=== PATIENT | female | born 1995 ===

== ENCOUNTER 2018-08-23 16:19 | Emergency (ER) | payer OTHER ==
[2018-08-23 16:24] VITALS: RESP 16; TEMP 99.3; BMI 20.5
[2018-08-23] MEDS ORDERED: Sodium Chloride 0.9% 1,000 ML IV STA (17:13)
--- NOTE | 2018-08-23 17:22 | ED PDOC ---
HPI: Seizure Time Seen by Provider: 08/23/18 16:35 Chief Complaint (Nursing): Seizure Chief Complaint (Provider): Seizure History Per: Patient, Hospital Supervisor ([phone] ) History/Exam Limitations: no limitations Recent Seizure Activity Began: Hours Ago: (4) Number Of Seizures: One Associated Symptoms: denies: Bit Tongue, Incontinence Of Urine, Incontinence Of Stool, Injury As A Result Of Seizure Activity Additional Complaint(s): 23 year old female with a past medical history of epilepsy who is presenting to the ED for evaluation of seizure onset around 12 pm today. Patient states that she was at work when she had her seizure and reports that prior to this one she has not has a seizure since May. She reports that after the seizure she felt week, had a headache, and an episode of vomiting. Patient states that she has been living in the [facility] for 2 years and gets her workup done every time she goes to the [facility]. She admits that the last time she went to the [facility] was 1 year ago when she had her last full workup. Patient states that she was given Lamictal but ran out two weeks ago. She admits that she saved one pill and took it today. Patient offers no other medical complaints at this time. PMD: none provided Past Medical History Reviewed: Historical Data, Nursing Documentation, Vital Signs Vital Signs: Last Vital Signs Temp 99.3 F 08/23/18 16:23 Pulse 98 H 08/23/18 16:23 Resp 16 08/23/18 16:23 BP 126/70 08/23/18 16:23 Pulse Ox 99 08/23/18 16:23 - Medical History Other PMH: epilepsy - Surgical History Surgical History: No Surg Hx - Family History Family History: States: Unknown Family Hx - Social History Current smoker - smoking cessation education provided: No Alcohol: None Drugs: Denies - Home Medications Home Medications: Ambulatory Orders Medication Instructions Recorded Lamotrigine 25 mg PO DAILY #20 tablet 08/23/18 - Allergies Allergies/Adverse Reactions: Allergies Allergy/AdvReac Type Severity Reaction Status Date / Time No Known Allergies Allergy Verified 08/23/18 16:23 Review of Systems ROS Statement: Except As Marked, All Systems Reviewed And Found Negative Constitutional: Positive for: Weakness Gastrointestinal: Positive for: Vomiting Neurological: Positive for: Seizures, Headache Physical Exam - Reviewed Nursing Documentation Reviewed: Yes Vital Signs Reviewed: Yes - Physical Exam Appears: Positive for: Well, Non-toxic, No Acute Distress Head Exam: Positive for: ATRAUMATIC, NORMAL INSPECTION, NORMOCEPHALIC Skin: Positive for: Normal Color, Warm, DRY Eye Exam: Positive for: EOMI, Normal appearance, PERRL ENT: Positive for: Other (No tongue laceration) Neck: Positive for: Normal, Painless ROM Cardiovascular/Chest: Positive for: Regular Rate, Rhythm. Negative for: Murmur Respiratory: Positive for: Normal Breath Sounds. Negative for: Respiratory Distress Gastrointestinal/Abdominal: Positive for: Normal Exam, Soft. Negative for: Tenderness Extremity: Positive for: Normal ROM. Negative for: Deformity, Swelling Neurological/Psych: Positive for: Awake, Alert, Normal Tone, Oriented. Negative for: Motor/Sensory Deficits - Laboratory Results Result Diagrams: 08/23/18 17:20 08/23/18 17:20 - ECG O2 Sat by Pulse Oximetry: 99 (RA) Pulse Ox Interpretation: Normal Medical Decision Making Medical Decision Making: Time: 17:12 Plan: --CT Head --CMP --ED Urine Dipstick --ED Urine --CBC --IV Fluids --Urinalysis Accession No. : [id number] Patient Name / ID : MERI HINKLE M / [id number] Exam Date : 08/23/2018 17:55:51 ( Approved ) Study Comment : Sex / Age : F / 23Y Creator : Carroll Heredia MD Dictator : Carroll Heredia MD Yacht Master : Efficiency Clerk : Carroll Heredia MD Approver2 : Report Date : 08/23/2018 18:17:38 My Comment : Date of service: 08/23/2018 PROCEDURE: CT HEAD WITHOUT CONTRAST. HISTORY: Seizure, h/o epilepsy, BLISS COMPARISON: None. TECHNIQUE: Axial computed tomography images were obtained through the head/brain without intravenous contrast. Supplemental Coronal and Sagittal projections created and reviewed. Radiation dose: Total exam DLP = 808.75 mGy-cm. This CT exam was performed using one or more of the following dose reduction techniques: Automated exposure control, adjustment of the mA and/or kV according to patient size, and/or use of iterative reconstruction technique. FINDINGS: HEMORRHAGE: No intracranial hemorrhage. BRAIN: No mass effect or edema. No atrophy or chronic microvascular ischemic changes. VENTRICLES: Unremarkable. No hydrocephalus. CALVARIUM: Unremarkable. PARANASAL SINUSES: Unremarkable as visualized. No significant inflammatory changes. MASTOID AIR CELLS: Unremarkable as visualized. No inflammatory changes. OTHER FINDINGS: None. IMPRESSION: No acute intracranial abnormalities. No significant findings to account for the clinical presentation. Scribe Attestation: Documented by Paige Sibley, acting as a scribe for Mariaa Bunch MD. Provider Scribe Attestation: All medical record entries made by the Scribe were at my direction and personally dictated by me. I have reviewed the chart and agree that the record accurately reflects my personal performance of the history, physical exam, medical decision making, and the department course for this patient. I have also personally directed, reviewed, and agree with the discharge instructions and disposition. Disposition - Clinical Impression Clinical Impression: Seizure disorder - Disposition Referrals: [facility] [place] [Outside] [facility] [Outside] Breezy Young MD [Medical Doctor] - Disposition: Routine/Home Disposition Time: 18:23 Condition: STABLE Additional Instructions: FOLLOW-UP WITH NEUROLOGIST WITHIN 2 DAYS FOR REEVALUATION. Prescriptions: Lamotrigine 25 mg PO DAILY #20 tablet Instructions: Epilepsy in Adults Forms: [facility] ([place]), [facility] ED School/Work Excuse Print Language: LATVIAN Addendum Addendum: 08/24/18 15:53 Medical Emergency Report filled out and faxed to the [employer].
[2018-08-23 17:41] LABS: BASO % 0.3 % (0.0-2.0); EOS % 0.1 % (0.0-4.0); HEMOGLOBIN 15.2 g/dL (12.0-16.0); LYMPH # 0.9 K/uL (1.0-4.3); LYMPH % 7.3 % (20.0-40.0); MEAN CELL VOLUME 87.9 fl (81.0-99.0); MEAN CORPUSCULAR HEMOGLOBIN 28.8 pg (27.0-31.0); MEAN CORPUSCULAR HGB CONC 32.8 g/dL (33.0-37.0); MEAN PLATELET VOLUME 11.4 fl (7.2-11.7); MONO # 0.4 K/uL (0.0-0.8); MONO % 2.9 % (0.0-10.0); NEUT # 11.2 K/uL (1.8-7.0); NEUT % 89.4 % (50.0-75.0); PLATELET COUNT 318 K/uL (130-400); RBC 5.26 Mil/uL (3.80-5.20); RED CELL DISTRIBUTION WIDTH 13.4 % (11.5-14.5); WHITE BLOOD COUNT 12.5 K/uL (4.8-10.8)
[2018-08-23 17:51] LABS: BLOOD UREA NITROGEN 14 mg/dl (7-17); GFR NON-AFRICAN AMERICAN > 60
[2018-08-23 17:52] LABS: ALB/GLOB RATIO 1.3 (1.0-2.1); ALBUMIN 5.5 g/dL (3.5-5.0); ALT/SGPT 23 U/L (9-52); AST/SGOT 55 U/L (14-36)
[2018-08-23 17:53] LABS: SQUAMOUS EPITHIAL 2 /hpf (0-5); URINE BILIRUBIN NEGATIVE (NEGATIVE); URINE BLOOD NEGATIVE (NEGATIVE); URINE CLARITY SLIGHTY-CLOUDY (Clear); URINE COLOR YELLOW (YELLOW); URINE GLUCOSE (UA) NEG (NEGATIVE); URINE LEUKOCYTE ESTERASE NEG Leu/uL (Negative); URINE PROTEIN NEGATIVE (NEGATIVE); URINE UROBILINOGEN 0.2-1.0 mg/dL (0.2-1.0)
--- NOTE | 2018-08-23 18:21 | CT ---
Date of service: 08/23/2018 PROCEDURE: CT HEAD WITHOUT CONTRAST. HISTORY: Seizure, h/o epilepsy, BLISS COMPARISON: None. TECHNIQUE: Axial computed tomography images were obtained through the head/brain without intravenous contrast. Supplemental Coronal and Sagittal projections created and reviewed. Radiation dose: Total exam DLP = 808.75 mGy-cm. This CT exam was performed using one or more of the following dose reduction techniques: Automated exposure control, adjustment of the mA and/or kV according to patient size, and/or use of iterative reconstruction technique. FINDINGS: HEMORRHAGE: No intracranial hemorrhage. BRAIN: No mass effect or edema. No atrophy or chronic microvascular ischemic changes. VENTRICLES: Unremarkable. No hydrocephalus. CALVARIUM: Unremarkable. PARANASAL SINUSES: Unremarkable as visualized. No significant inflammatory changes. MASTOID AIR CELLS: Unremarkable as visualized. No inflammatory changes. OTHER FINDINGS: None. IMPRESSION: No acute intracranial abnormalities. No significant findings to account for the clinical presentation.
[2018-08-23 19:28] VITALS: BP 110/71; PULSE 88
[2018-08-23 19:55] LABS: BANDS 3 % (0-2); LYMPHOCYTE 8 % (20-50); MONOCYTE 4 % (0-10); NEUTROPHIL 85 % (42-75); PLATELET ESTIMATE NORMAL (NORMAL); TOTAL CELLS COUNTED 100
[2018-08-24 15:53] VITALS: O2SAT 99
== END 2018-08-23 18:23 | disposition home or self-care (01) ==
LOC: H.ER 16:19
DX: G40.909 Epilepsy, unspecified, not intractable, without status epilepticus (principal)
CPT/HCPCS: 70450; 80053; 81003; 81025; 85025; 96360; 99285; J7030